=== PATIENT | male | born 1950 | race Caucasian/White ===

== ENCOUNTER 2016-06-03 05:52 | Day surgery (SDC) | payer MEDICARE ==
[2016-06-03] MEDS ORDERED: Lactated Ringers 1,000 ML IV SCH (06:30)
[2016-06-03 07:46] VITALS: PULSE 58; O2SAT 96
[2016-06-03] MEDS ORDERED: Versed 2 MG/2 ML Injection IV ONE (08:00)
[2016-06-03] MEDS ORDERED: DIPRIVAN 200 MG/20 ML IV ONE (08:00)
[2016-06-03 08:22] VITALS: BP 141/78
--- NOTE | 2016-06-03 11:32 | OP ---
SURGERY DATE/TIME: 06/03/2016 0701 PREOPERATIVE DIAGNOSIS: Melena. POSTOPERATIVE DIAGNOSES: 1) Duodenal ulcer. 2) Mild gastritis. PROCEDURE: EGD. SURGEON: Saleem Glez M.D. ANESTHESIA: MAC by Ronnell Goldman CRNA. ESTIMATED BLOOD LOSS: Minimal. SPECIMENS: Two cold forceps biopsies were taken from the duodenum and gastric antrum. DESCRIPTION OF PROCEDURE: After informed written consent was obtained, the patient was taken to the endoscopy suite. He underwent monitored anesthesia and a bite block was inserted. After adequate level of anesthesia was titrated, the endoscope was inserted into the posterior oropharynx and under direct visualization the esophagus was traversed. The esophageal mucosa had a normal appearance free of any lesions or defects. Upon entering the stomach, there was a normal rugated gastric mucosa free of any lesions or defects. There were mild gastritis-type changes of the gastric antrum area with no focal ulcerations or bleeding encountered. Upon entering the pylorus, the first portion of the small intestine showed a small superficial ulceration with no active bleeding that was in the vicinity of the pyloric opening. Two biopsies were taken from the duodenal area near the ulceration. Upon withdrawal from the pylorus two cold forceps biopsies were also taken from the gastric antrum to be sent for Helicobacter pylori testing. There was a small hiatal hernia appreciable upon withdrawal as well. The remainder of the exam was unremarkable. The scope is removed and the patient was transferred to the recovery room in excellent condition. I have advised that he continue his Prilosec at this time and avoid all NSAID's and aspirin products. He is to follow up in one week for pathology results. Thank you Dr. Roy for the opportunity to participate in this pleasant gentleman's care.
== END 2016-06-03 08:30 | disposition home or self-care (01) ==
LOC: SDC 05:52
PROVIDERS: ATTEND Family Medicine
PROC: 0DB98ZX Excision of Duodenum, Via Natural or Artificial Opening Endoscopic, Diagnostic (ICD-10-PCS; principal; 2016-06-03)
PROC: 0DB68ZX Excision of Stomach, Via Natural or Artificial Opening Endoscopic, Diagnostic (ICD-10-PCS; 2016-06-03)
DX: K26.9 Duodenal ulcer, unspecified as acute or chronic, without hemorrhage or perforation (principal); K29.70 Gastritis, unspecified, without bleeding
CPT/HCPCS: 36415; J2250; J2704

== ENCOUNTER 2019-06-11 13:06 | Emergency (ER) | payer MEDICARE ==
--- NOTE | 2019-06-11 13:15 | ERPHSYRPT ---
- History of Present Illness Time Seen by Provider: 06/11/19 13:15 Source: patient Exam Limitations: no limitations Physician History: This is a 69-year-old male who has a history of ulcerative colitis and is taking Bactrim as well as sulfasalazine chronically. He called his primary care provider's office because of cough symptoms that have been present for couple of days. Patient denies myalgias he denies arthralgias he denies fever, he denies chest pain, abdominal pain and denies nausea vomiting diarrhea symptoms. Patient was told to go to the emergency room for screening. The provider's office does not want anyone with flulike symptoms in their office at this time and was told to come to the emergency room for evaluation. Upon arrival to the emergency room, patient was not initially screened not only outside the emergency department and in our emergency department. Patient states the only symptom he has is coughing. Patient does not want any testing done. He wants something for his cough. He is also aware that we do not test for the coronavirus. Timing/Duration: day(s) (A couple) Cough Quality/Degree: mild, dry cough Possible Cause: occasional episodes Modifying Factors: Improves With: coughing International travel in last 2 weeks: No Allergies/Adverse Reactions: No Known Drug Allergies Allergy (Verified 06/11/19 13:27) Home Medications: Sulfasalazine 500 mg [Azulfidine 500 mg] 1,000 mg PO TID 06/11/19 [History ] - Review of Systems Constitutional: No Symptoms Eyes: No Symptoms Ears, Nose, & Throat: No Symptoms Respiratory: Cough (Mild) Cardiac: No Symptoms Abdominal/Gastrointestinal: No Symptoms Genitourinary Symptoms: No Symptoms Musculoskeletal: No Symptoms Skin: No Symptoms Neurological: No Symptoms Psychological: No Symptoms Endocrine: No Symptoms Hematologic/Lymphatic: No Symptoms Immunological/Allergic: No Symptoms All Other Systems: Reviewed and Negative - Past Medical History Pertinent Past Medical History: Yes Neurological History: No Pertinent History ENT History: No Pertinent History Cardiac History: No Pertinent History Respiratory History: No Pertinent History Endocrine Medical History: No Pertinent History Musculoskeletal History: No Pertinent History GI Medical History: No Pertinent History History: No Pertinent History Psycho-Social History: No Pertinent History Male Reproductive Disorders: No Pertinent History - Past Surgical History Past Surgical History: Yes Neuro Surgical History: No Pertinent History Cardiac: No Pertinent History Respiratory: No Pertinent History Gastrointestinal: Appendectomy Genitourinary: No Pertinent History Musculoskeletal: No Pertinent History Male Surgical History: No Pertinent History - Social History Smoking Status: Never smoker Exposure to second hand smoke: No Drug Use: none - Physical Exam General Appearance: no apparent distress, alert Eye Exam: PERRL/EOMI, eyes nml inspection Ears, Nose, Throat Exam: normal ENT inspection, moist mucous membranes Neck Exam: normal inspection, non-tender, supple, full range of motion Respiratory Exam: normal breath sounds, lungs clear, airway intact, No chest tenderness, No respiratory distress Cardiovascular Exam: regular rate/rhythm, normal heart sounds, normal peripheral pulses Gastrointestinal/Abdomen Exam: soft, No normal bowel sounds, No tenderness Rectal Exam: not done Back Exam: normal inspection, normal range of motion Extremity Exam: normal inspection, normal range of motion, pelvis stable Neurologic Exam: alert, oriented x 3, cooperative, 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 He just wanted something called in for his cough. Patient is already on Bactrim chronically which would treat a bacterial bronchitis. Patient just wants some cough medicine. He does not desire any type of screening which we offered him. Patient is aware that we are not testing at this time for the coronavirus. He is not wanting testing for that entity. Blood Culture(s) Obtained: No Antibiotics given: No Counseled pt/family regarding: lab results, diagnosis, need for follow-up, rad results - Departure Departure Disposition: Home Clinical Impression: Encounter for medical screening examination, High blood pressure Condition: Stable Critical Care Time: No Referrals: KIRA NAVAS MD [Primary Care Provider] - Additional Instructions: Drink plenty of fluids. Follow-up with your primary care for further management of your high blood pressure and persistent cough symptoms. Continue your medication as prescribed. Prescriptions: Hydrocodone Bit/Acetaminophen [Hydrocodone-Acetaminophen Soln] 10 ml PO Q6H # 120 ml
[2019-06-11 13:40] VITALS: BP 200/96; PULSE 82; O2SAT 97
== END 2019-06-11 13:53 | disposition home or self-care (01) ==
LOC: ED 13:06
DX: R05 Cough (principal); I10 Essential (primary) hypertension; Z79.899 Other long term (current) drug therapy
CPT/HCPCS: 99283